=== PATIENT | female | born 1980 | race Caucasian/White ===

== ENCOUNTER → 2017-08-23 | Outpatient (CLI) | payer OTHER ==
--- NOTE | 2017-08-23 17:07 | EEG Procedure Note ---
EEG Procedure Note Date of Service Aug 23, 2017. Start / End Times Start Time: 1:32 PM End Time: 1:53 PM Referring Physician JEN Allen History This is a 37-year-old female with episodes of impairment or memory loss. EEG for further evaluation of possible seizure etiology. Description This is a 21 electrode EEG with a single channel dedicated to limited EKG. The electrodes were placed in accordance with the International 10-20 system. At the start of the recording the patient was in an awake state. Background was well organized and composed of symmetric mixed alpha and beta frequencies. There was a symmetric well-formed moderate amplitude 12-13 Hz posterior dominant rhythm that was reactive to eye opening and closure. Hyperventilation was not done. Intermittent photic stimulation at various frequencies produced no abnormalities. Sleep was indicated by vertex waves and symmetric sleep spindles Interpretation This is a normal awake and asleep routine EEG. There was no electrographic seizures or epileptiform discharges. Clinical Correlation A normal EEG does not rule out epilepsy if there is a strong clinical suspicion.
== END | disposition home or self-care (01) ==
LOC: C.NEUR 13:25
PROVIDERS: ATTEND Physician Assistant
DX: R41.3 Other amnesia (principal)